=== PATIENT | male | born 1955 | race Caucasian/White ===

== ENCOUNTER 2022-08-16 01:59 | Emergency (ER) | payer MEDICARE, MEDICAID, SELFPAY ==
[2022-08-16 01:59] VITALS: BP 129/83; PULSE 84; RESP 20; TEMP 37; O2SAT 100
--- NOTE | 2022-08-16 02:19 | ED.GENADULT ---
HPI - General Adult General Chief complaint: Unspecified Stated complaint: overheated Time Seen by Provider: 08/16/22 02:03 History of Present Illness HPI narrative: Patient who is a quadriplegic presents here since the power went out in this house and his mattress then collapsed and he felt very overheated, every time he feels overheated he gets nauseous and his stomach hurts. He tried calling his son who did not product picker, and finally called EMS who brought him here. While here, he is denying any complaints, he wants some water. Related Data Allergies Allergy/AdvReac Type Severity Reaction Status Date / Time etanercept Allergy Mild Hives Verified 08/16/22 02:05 Review of Systems Review of Systems: CONST: No fever. HEENT: No sore throat C/V: No chest pain RESP: No cough GI: Reports abdominal pain, nausea : No dysuria. M/S: No joint pain. SKIN: No rash. NEURO: [No headache] PSYCH: [No depression] [facility] Past Medical History Medical History (Updated 08/16/22 @ 04:33 by Sharifa Giang MD) Quadriplegia Exam Narrative: EXAMINATION OF ORGAN SYSTEMS/BODY AREAS: Constitutional: Vital signs per nursing GENERAL:[No acute distress, non-toxic appearing.] HEAD: Normal with no signs of head trauma. EYES: EOMI, conjunctiva normal ENT: Hearing grossly intact LUNGS: Nonlabored breathing. HEART: [Regular rate and rhythm] ABD: [Soft], [nontender to palpation] EXT: Unable to move BLE; some movement BUE SKIN: [No rashes or lesions.] NEURO: [Alert and oriented x 3. No gross focal sensory or strength deficits.] PSYCH: Normal affect Course Vital Signs Vital signs: Vital Signs Temperature 98.6 F 08/16/22 01:59 Pulse Rate 84 08/16/22 01:59 Respiratory Rate 20 08/16/22 01:59 Blood Pressure 129/83 08/16/22 01:59 Pulse Oximetry 100 08/16/22 01:59 Oxygen Delivery Room Air 08/16/22 01:59 Temperature 98.6 F 08/16/22 01:59 Pulse Rate 84 08/16/22 01:59 Respiratory Rate 20 08/16/22 01:59 Blood Pressure 129/83 08/16/22 01:59 Pulse Oximetry 100 08/16/22 01:59 Oxygen Delivery Room Air 08/16/22 01:59 Medical Decision Making MDM Narrative Medical decision making narrative: 66-year-old male presents here because the power went out, he is quadriplegic and was able to get himself out of his own bed that collapsed from under him since it was an air mattress, and the AC was not working, he was unable to open a window or go outside. He tried calling his son who did not product picker, he was starting to feel slightly nauseous, and called EMS. Upon arrival here, he is feeling much better. He is drinking water. He is agreeable to going home at this time as long as EMS can help him get into his wheelchair. I do feel this is reasonable, and by the time EMS arrives here, the power will likely have either returned or his son will be able to help him out in the morning if needed. It is currently 74 degrees outside. He can always return for any further issues Vital Signs Vital Signs: Vital Signs Temperature 98.6 F 08/16/22 01:59 Pulse Rate 84 08/16/22 01:59 Respiratory Rate 20 08/16/22 01:59 Blood Pressure 129/83 08/16/22 01:59 Pulse Oximetry 100 08/16/22 01:59 Oxygen Delivery Room Air 08/16/22 01:59 Temperature 98.6 F 08/16/22 01:59 Pulse Rate 84 08/16/22 01:59 Respiratory Rate 20 08/16/22 01:59 Blood Pressure 129/83 08/16/22 01:59 Pulse Oximetry 100 08/16/22 01:59 Oxygen Delivery Room Air 08/16/22 01:59 Discharge Plan Discharge Clinical Impression: Heat exposure Patient Disposition: Home, Self-Care Condition: Stable Instructions: Antibiotic Form, Heat Exhaustion (ED) Additional Instructions: Please follow up with your doctor; you can always return for any further issues. Follow-up/Referrals: CIROARIEL M.D. [Non-Staff] - 2 Days
[2022-08-16 03:30] VITALS: BP 137/79; PULSE 79; RESP 15; O2SAT 99
[2022-08-16] MEDS: ACETAMINOPHEN 500 MG TABLET 1000 MG PO (04:04)
[2022-08-16 04:30] VITALS: BP 123/75; PULSE 81; RESP 12; O2SAT 99
[2022-08-16 05:30] VITALS: BP 131/80; PULSE 75; RESP 12; O2SAT 99
[2022-08-16 06:47] VITALS: BP 130/81; PULSE 75; RESP 12; O2SAT 99
== END 2022-08-16 06:49 | disposition home or self-care (01) ==
PROVIDERS: Emergency Provider Emergency Medicine
DX: T67.9XXA Effect of heat and light, unspecified, initial encounter (principal); G82.50 Quadriplegia, unspecified; X30.XXXA Exposure to excessive natural heat, initial encounter
CPT/HCPCS: 99282; A9270

== ENCOUNTER 2024-05-13 09:55 | Outpatient (RCR) | payer MEDICARE, MEDICAID, SELFPAY ==
--- NOTE | 2024-05-13 11:49 | OTOPEVDC ---
Assessment and note entered by Francisco Isaasc, CARMELA/Mayra, OCTAVIOT Than Evaluation Information Diagnosis Quadriplegia, chronic pressure ulcer Subjective Information Patient referred to our clinic for power w/c evaluation. Patient's current seating/mobility system is 5 years old and is breaking down and he is needing an updated cushion for better pressure relief. Please refer to 12 page seating/mobility evaluation form for details. Assessment OT Clinical Summary Patient is a 68 year old male with dx of quadriplegia, spasticity, and current pressure ulcer. He current power wheelchair is starting to break down. Patient requires the use use of a group 3 power wheelchair with tilt, recline, AFP, elevator base, contoured back, and thigh guides. Patient has current and past history of pressure ulcers. He is unable to adequately independently provide pressure relief and relies on this wheelchair for his mobility, thus it is necessary for the patient to have the tilt and recline features. Recline is also needed to accommodate for patient's tone, spasticity, pain, and for ADLs such as bowel and bladder management. AFP required for proper and optimal positioning int he chair with tilt and recline. This is also necessary for LE edema control as his PMH includes CHF as well as patient is immobile and unable to actively move LEs to reduce edema. An elevator base needed for patient to complete ADLs that involve reaching, such as self feeding and oral care. A contoured back necessary due to patient's lateral lean in current base, this would position him in neutral and allow for better posture for ADLs and physiological functioning. Thigh guides are necessary for optimal positioning due to weakness patient's knees tend to abduct in the chair. Patient has been in a group 3 power wheelchair for the past 12 years and is willing and able to use new recommended equipment. Plan of Care OT Services Indicated No
== END 2024-05-16 11:48 | disposition home or self-care (01) ==
LOC: ANHOT 09:55
PROVIDERS: PCP Nurse Practitioner Family; Visit Provider Nurse Practitioner Family
DX: G82.50 Quadriplegia, unspecified (principal); L98.412 Non-pressure chronic ulcer of buttock with fat layer exposed; L40.8 Other psoriasis
CPT/HCPCS: 97167